=== PATIENT | female | born 1985 | race Two or more races ===

== ENCOUNTER 2024-09-05 22:16 | Emergency (ER) | payer MEDICAID, SELFPAY ==
[2024-09-05 22:16] VITALS: BMI 32.1
[2024-09-05 22:35] VITALS: BP 132/80; PULSE 71; RESP 18; TEMP 36.6; O2SAT 98
[2024-09-05] MEDS: HYDROcodone/APAP 7.5/325 TABLET 1 TAB PO (22:50)
--- NOTE | 2024-09-05 23:23 | PD.EDDENTL ---
ED Dental RME/HPI General Chief complaint: Dental/Oral/Throat Stated complaint: TOOTH PAIN Time Seen by Provider: 09/05/24 22:45 Arrival date/time: 09/05/24 22:16 38F with no significant PMH presents to ED with dental pain that's been intermittent since her recent deep cleaning at dentist. Patient is currently on amoxicillin and will see dentist tomorrow. Limitations: no limitations Related Data Previous Rx's ?Medication ?Instructions ?Recorded baclofen 20 mg tablet 20 mg PO QDAY #20 tabs 12/31/23 naproxen 500 mg tablet 500 mg PO BID PRN pain #30 tabs 12/31/23 Allergies Allergy/AdvReac Type Severity Reaction Status Date / Time No Known Allergies Allergy Verified 09/05/24 22:20 Review of Systems Review of Systems Systems Reviewed: All systems reviewed, normal except as documented Constitutional Constitutional: Reports system reviewed and no additional complaints, except as documented, Denies fever(s) and Denies headache(s) ENT Ears, Nose, Mouth, and Throat: Reports as per HPI, Reports dental pain, Denies disequilibrium and Denies headache(s) Cardiovascular Cardiovascular: Reports system reviewed and no additional complaints, except as documented, Denies chest pain and Denies dyspnea Respiratory Respiratory: Reports system reviewed and no additional complaints, except as documented, Denies cough and Denies dyspnea Gastrointestinal Gastrointestinal: Reports system reviewed and no additional complaints, except as documented, Denies abdominal pain, Denies nausea and Denies vomiting Neurologic Neurologic: Reports system reviewed and no additional complaints, except as documented, Denies confusion, Denies disequilibrium and Denies headache(s) Psychiatric Psychiatric: Denies confusion Past Medical History Social History SMOKING STATUS: Never smoker ED Exam General Limitations: Present no limitations General appearance: Present alert and in no apparent distress Head Head exam: Present atraumatic Eye Eye exam: Present normal appearance, PERRL and EOMI ENT ENT exam: Present mucous membranes moist Expanded ENT Exam Teeth exam: Present dental caries Neck Neck exam: Present normal inspection, full ROM and trachea midline Chest Chest inspection: Present normal inspection and symmetric chest wall rise Respiratory Respiratory exam: Present normal lung sounds bilaterally Cardiovascular Cardiovascular exam: Present regular rate, normal rhythm and normal heart sounds Abdominal Exam Abdominal exam: Present soft and normal bowel sounds Extremities Exam Extremities exam: Present normal inspection and full ROM Back Exam Back exam: Present normal inspection and full ROM Neurological Exam Neurological exam: Present alert, oriented X3 and CN II-XII intact Psychiatric Psychiatric exam: Present normal affect and normal mood Skin Skin exam: Present warm, dry, intact and normal color Course Quality Measures none Orders Category Date Time Status HYDROcodone*/APAP 7.5/325 [[place] 7.5/325] Med 09/05/24 22:45 Discontinued 1 tab PO X1 ONE Vital Signs Vital signs: Vital Signs Temperature 98 F 09/05/24 22:35 Pulse Rate 71 09/05/24 22:35 Respiratory Rate 18 09/05/24 22:35 Blood Pressure 132/80 H 09/05/24 22:35 Pulse Oximetry (%) 98 09/05/24 22:35 O2 at 98% on RA and WNLs Dental / Oral MDM Narrative MDM Narrative:: 38F with no significant PMH presents to ED with dental pain that's been intermittent since her recent deep cleaning at dentist. Patient is currently on amoxicillin and will see dentist tomorrow. Physical exam reveals no obvious gingival swelling. Multiple caries. Patient is afebrile, calm, and alert. Meds and marriage and family counselor given. Patient data External records reviewed:: [facility] previous records Clinical information provided by:: patient Social determinants that could affect healthcare access:: none Patient has the following chronic illnesses:: none How is presenting disease/condition affected by chronic disease/condition?: no chronic disease Evaluation data The following diagnostics were reviewed and interpreted by me:: other (specify) (none) Lab and/or radiology exams considered but not ordered:: not ordered Interpretation Summary: n/a Medications / Prescriptions Medications or Prescriptions considered but not ordered:: ordered Medication administrations:: Medication Administration History Discontinued Medications Hydrocodone Bitart/Acetaminophen (Hydrocodone/Apap 7.5/325 Tablet) 1 tab PO X1 ONE Stop: 09/05/24 22:46 Last Admin: 09/05/24 22:50 Dose: 1 tab Documented By: above Consultations Consultation(s) initiated? (list below): No Diagnosis Dental Differential Diagnosis: gingival abscess, dental caries, toothache, dental abscess, fracture of tooth and aphthous ulcer Most likely diagnosis given after review of the tests above:: toothache Admission Indicated Admission indicated?: not indicated Explain why admission is indicated or not indicated:: outpatient Admission Request Was there a request for admission?: No Disposition Plan Disposition Plan: Discharge Discharge Attestation Discharge Attestation: The patient and all family members were given an opportunity to ask questions and understood the discharge instructions. Discharge instructions specifically effects, indications for sooner follow up or return to the emergency department, and the expected course of current diagnosis. Patient condition: Stable Discharge Plan Plan Patient Disposition: HOME (Self Care) Disposition Comment: Stable Prescriptions/Referrals Prescriptions/Med Rec: No Action baclofen 20 mg tablet 20 mg PO QDAY Qty: 20 0RF naproxen 500 mg tablet 500 mg PO BID PRN (Reason: pain) Qty: 30 0RF Problem List Clinical Impression: Toothache Patient/Caregiver Discharge Instructions Education Materials: ED Dental Pain Additional Instructions: Please follow-up with PCP within 24-48 hours and return immediately if symptoms worsen. See dentist soon. Print Language: Nicaraguan Stand Alone Forms: Patient Portal Info Letter DAMIAN/RERE Supervising Physician DAMIAN/RERE Supervising Physician: Dr. Lincoln
== END 2024-09-05 22:52 | disposition home or self-care (01) ==
PROVIDERS: Emergency Provider Emergency Medicine; PCP Nurse Practitioner
DX: K08.89 Other specified disorders of teeth and supporting structures (principal)
CPT/HCPCS: 99283; A9270

== ENCOUNTER 2025-03-17 10:56 | Emergency (ER) | payer MEDICAID, SELFPAY ==
[2025-03-17 11:15] VITALS: BP 116/81; PULSE 108; RESP 18; TEMP 36.7; O2SAT 100
[2025-03-17] MEDS: HYDROcodone/APAP 5/325 TABLET 1 TAB PO (11:20)
[2025-03-17 11:32] LABS: Collection Type, Urine Voided
[2025-03-17 11:53] LABS: Bacteria,Urine 1+; Bilirubin,Urine Negative (Negative); Blood,Urine Negative (Negative); Color,Urine Yellow (Lt Yel-Yel); Glucose, Urine 4+ (Negative); Ketones,Urine Trace (Negative); Leukocyte Esterase,Urine Negative (Negative); Nitrite,Urine Positive (Negative); PH,Urine 6.0 (5.0-7.0); Protein,Urine Trace (Neg - Trace); RBC,Urine 5 /hpf (0-3); Specific Gravity,Urine 1.033 (1.001-1.035); Squamous Epithelial Cell,Urine 4 /hpf (0-5); Urobilinogen,Urine Negative mg/dL (0.0-1.0); WBC,Urine 8 /hpf (0-5)
[2025-03-17 12:07] LABS: Basophils # (Auto) 0.0 Thou/mm3 (0.0-0.2); Basophils % (Auto) 1 % (0-2.5); Eosinophils # (Auto) 0.1 Thou/mm3 (0.0-0.5); Eosinophils % (Auto) 1 % (0-10); Hematocrit 41.4 % (36.0-46.0); Hemoglobin 14.1 g/dL (12.0-16.0); Immature Granulocytes Auto 0.02 Thou/mm3 (0.00-0.00); Lymphocytes # (Auto) 2.1 Thou/mm3 (1.0-4.8); Lymphocytes % (Auto) 25 % (10-50); Mean Corpuscular HGB Conc 34.1 g/dl (31.0-37.0); Mean Corpuscular Hemoglobin 29.6 pg (25.0-35.0); Mean Corpuscular Volume 87 fL (80-100); Monocytes # (Auto) 0.6 Thou/mm3 (0.0-0.8); Monocytes % (Auto) 7 % (0-12); Neutrophils # (Auto) 5.6 Thou/mm3 (1.8-7.7); Neutrophils % (Auto) 67 % (37-80); Nucleated Red Blood Cell # 0.00 Thou/mm3 (0.00-0.00); Nucleated Red Blood Cell % 0 /100 WBC (0); Platelet Count 289 Thou/mm3 (140-440); RDW Standard Deviation 41.7 fL (36.4-46.3); Red Blood Count 4.76 Miln/mm3 (4.00-5.20); White Blood Count 8.4 Thou/mm3 (3.6-11.0)
[2025-03-17 12:24] LABS: Clarity,Urine Cloudy (Clear/Hazy); Culture Indicated,Urine Yes
[2025-03-17 12:26] LABS: Sed Rate (ESR) 57 mm/hr (0-20)
[2025-03-17 12:29] LABS: Alanine Aminotransferase 88 U/L (10-49); Albumin, Serum 4.2 gm/dL (3.5-5.0); Albumin/Globulin Ratio 1.4 (1.2-2.2); Alkaline Phosphatase 79 U/L (46-116); Anion Gap 11 (7-16); Aspartate Amino Transferase 36 U/L (0-34); BUN/Creatinine Ratio 17 Ratio (12-20); Bilirubin,Total 0.9 mg/dL (0.3-1.2); Blood Urea Nitrogen 12 mg/dL (9-23); C-Reactive Protein 3.8 mg/dL (0.0-0.9); Calcium 9.1 mg/dL (8.3-10.6); Calcium (Corrected) 9.1 mg/dL (8.5-10.1); Carbon Dioxide 23.7 mMol/L (20.0-31.0); Chloride 102 mMol/L (98-107); Creatinine (Component) 0.7 mg/dL (0.6-1.3); Estimated Creatinine Clearance 108.9 mL/min (>60); Globulin 3.1 gm/dL (2.3-3.5); Glucose 239 mg/dL (74-106); Osmolality,Calculated 281 (275-295); Potassium 3.7 mMol/L (3.4-5.1); Sodium 137 mMol/L (136-145); Total Protein 7.3 gm/dL (5.7-8.2); eGFR > 60 See Note
[2025-03-17 13:52] VITALS: BP 116/84; PULSE 101; RESP 18; TEMP 36.8; O2SAT 98
--- NOTE | 2025-03-17 14:06 | PD.EDADULT ---
ED General RME/HPI General Chief complaint: General Adult/Misc Complain Stated complaint: NECK, ANKLES, WRIST, BACK PAIN Time Seen by Provider: 03/17/25 10:58 Source: patient and family Arrival date/time: 03/17/25 10:56 Limitations: no limitations RME / HPI RME / HPI narrative: 3-year-old female is here today with her son who provides a history. She is here today with a 2-day history of polyarthralgia pain. She states her knees, back, wrists have been hurting. She has no joint erythema or edema. She has no fevers or chills. She has no eye changes. No eye irritation. No changes in urination. She has no skin changes. She denies any chest pain, nausea, or vomiting. Denies any history of autoimmune disorder. She has no other acute complaints. Related Data Previous Rx's ?Medication ?Instructions ?Recorded baclofen 20 mg tablet 20 mg PO QDAY #20 tabs 12/31/23 naproxen 500 mg tablet 500 mg PO BID PRN pain #30 tabs 12/31/23 prednisone 50 mg tablet 50 mg PO QDAY #5 tabs 03/17/25 Allergies Allergy/AdvReac Type Severity Reaction Status Date / Time No Known Allergies Allergy Verified 03/17/25 10:59 Review of Systems Review of Systems Systems Reviewed: All systems reviewed, normal except as documented ED Exam General Limitations: Present no limitations General appearance: Present alert and in no apparent distress Head Head exam: Present atraumatic Eye Eye exam: Present normal appearance, PERRL and EOMI ENT ENT exam: Present normal exam, normal oropharynx and mucous membranes moist Neck Neck exam: Present normal inspection, full ROM and trachea midline Chest Chest inspection: Present normal inspection and symmetric chest wall rise Respiratory Respiratory exam: Present normal lung sounds bilaterally Cardiovascular Cardiovascular exam: Present regular rate, normal rhythm and normal heart sounds Abdominal Exam Abdominal exam: Present soft and normal bowel sounds Extremities Exam Extremities exam: Present normal inspection and full ROM Back Exam Back exam: Present normal inspection and full ROM Neurological Exam Neurological exam: Present alert and oriented X3 Psychiatric Psychiatric exam: Present normal affect and normal mood Skin Skin exam: Present warm, dry, intact and normal color Course Quality Measures none Orders Category Date Time Status Glucose [Bedside Blood Glucose] NOW Care 03/17/25 10:59 Active CBC Stat Lab 03/17/25 11:41 Completed CMP [Comprehensive Metabolic Panel] Stat Lab 03/17/25 11:41 Completed CRP [C-Reactive Protein] Stat Lab 03/17/25 11:41 Completed Sed Rate (ESR) Stat Lab 03/17/25 11:41 Completed UA, C/S IF [Urinalysis, C/S if Indicated] Stat Lab 03/17/25 11:20 Completed Urine Culture Stat Lab 03/17/25 11:20 Received HYDROcodone*/APAP 5/325 [[place] 5/325] Med 03/17/25 10:59 Discontinued 1 tab PO X1 ONE dexAMETHasone TAB [Decadron Tab] Med 03/17/25 13:57 Discontinued 8 mg PO X1 ONE Vital Signs Vital signs: Vital Signs Temperature 98.1 F 03/17/25 11:15 Pulse Rate 108 H 03/17/25 11:15 Respiratory Rate 18 03/17/25 11:15 Blood Pressure 116/81 03/17/25 11:15 Pulse Oximetry (%) 100 03/17/25 11:15 Oxygen Delivery Method Room Air 03/17/25 11:15 Discharge Plan Plan Patient Disposition: HOME (Self Care) Patient condition on transfer: Stable Prescriptions/Referrals Prescriptions/Med Rec: New prednisone 50 mg tablet 50 mg PO QDAY Qty: 5 0RF No Action baclofen 20 mg tablet 20 mg PO QDAY Qty: 20 0RF naproxen 500 mg tablet 500 mg PO BID PRN (Reason: pain) Qty: 30 0RF Referrals: Dinora Green [Primary Care Provider] - In 1 week Problem List Clinical Impression: Polyarthralgia Patient/Caregiver Discharge Instructions Education Materials: ED Osteoarthritis, ED Pain, Acute, Uncertain Cause, ED Rheumatoid Arthritis Additional Instructions: -Use tylenol for comfort in addition to the prescribed medication. -It is important that you follow up in clinic this week to consider further work up and referral to rheumatology. -Return here at any time for any worsening changes including fever. Print Language: Malian Stand Alone Forms: Karlie Award Info., Patient Portal Info Letter MDM Narrative MDM hospital course: 39-year-old female is here today with her son who provides a history. She is here today with a 2-day history of polyarthralgia pain. She states her knees, back, wrists have been hurting. She has no joint erythema or edema. She has no fevers or chills. She has no eye changes. No eye irritation. No changes in urination. She has no skin changes. She denies any chest pain, nausea, or vomiting. Denies any history of autoimmune disorder. She has no other acute complaints. Clinical Information Provided by patient and family Labs/Rad/Tests considered, not Ordered None Chronic Illness/Social Conditions which may negatively complicate care or outcome(s)-explain: None or not applicable Lab Interpretation Lab(s) interpretation(s): No leukocytosis or anemia. No metabolic derangement. Sed rate and CRP are elevated. Urinalysis unremarkable. Imaging Imaging interpretation: none Medication Administration(s) Medication Administration History Discontinued Medications Hydrocodone Bitart/Acetaminophen (Hydrocodone/Apap 5/325 Tablet) 1 tab PO X1 ONE Stop: 03/17/25 11:00 Last Admin: 03/17/25 11:20 Dose: 1 tab Documented By: BRIDGET Dexamethasone (Dexamethasone 4 Mg Tablet) 8 mg PO X1 ONE; Protocol Stop: 03/17/25 13:58 Last Admin: 03/17/25 14:04 Dose: 8 mg Documented By: TANIYA See above Diagnosis Differential diagnosis: Polyarthralgia, overuse tendinitis, rheumatoid disease Dispositon Disposition: Discharge Home
--- NOTE | 2025-03-21 16:42 | PC.NURSE ---
PT CONTACTED VIA PHONE ABOUT MEDICATION SENT TO PHARMACY IN REGARDS TO HER URINE CULTURE RESULTS. PT ANSWERED AND VERBALIZED UNDERSTANDING.
== END 2025-03-17 14:21 | disposition home or self-care (01) ==
PROVIDERS: Physician Assistant Medical; Emergency Provider Emergency Medicine
DX: M25.562 Pain in left knee (principal); M25.561 Pain in right knee; M25.532 Pain in left wrist; M25.531 Pain in right wrist; M54.9 Dorsalgia, unspecified
CPT/HCPCS: 36415; 80053; 81001; 85025; 85652; 86140; 87077; 87086; 87186; 99283; J8540; A9270

== ENCOUNTER 2025-05-11 01:44 | Emergency (ER) | payer MEDICAID, SELFPAY ==
[2025-05-11 01:45] VITALS: BMI 26.6
[2025-05-11 01:53] VITALS: BP 122/87; PULSE 96; RESP 18; TEMP 36.8; O2SAT 99
--- NOTE | 2025-05-11 02:13 | EDNOTE_ITS ---
ED Extremity Problem RME/HPI General Chief complaint: General Adult/Misc Complain Stated complaint: ARTHRITIS PAIN THROUGHOUT BODY Time Seen by Provider: 05/11/25 01:58 Arrival date/time: 05/11/25 01:44 39F with history of arthritis (pending official diagnosis) presents to ED with generalized joint pains. Patient denies fall/trauma. Limitations: no limitations Related Data Previous Rx's ?Medication ?Instructions ?Recorded baclofen 20 mg tablet 20 mg PO QDAY #20 tabs 12/30 naproxen 500 mg tablet 500 mg PO BID PRN pain #30 t abs 12/31/23 prednisone 50 mg tablet 50 mg PO QDAY #5 tabs prednisone 20 mg tablet 20 mg PO BID 5 days #10 tabs 05/11/25 Allergies Allergy/AdvReac Type Severity Reaction Status Date / Time No Known Allergies Allergy Verified 03/17/25 10:59 Review of Systems Review of Systems Systems Reviewed: All systems reviewed, normal except as documented Constitutional Constitutional: Reports system reviewed and no additional complaints, except as documented, Denies fever(s) and Denies headache(s) ENT Ears, Nose, Mouth, and Throat: Denies disequilibrium and Denies headache(s) Cardiovascular Cardiovascular: Reports system reviewed and no additional complaints, except as documented, Denies chest pain and Denies dyspnea Respiratory Respiratory: Reports system reviewed and no additional complaints, except as documented, Denies cough and Denies dyspnea Gastrointestinal Gastrointestinal: Reports system reviewed and no additional complaints, except as documented, Denies abdominal pain, Denies nausea and Denies vomiting Musculoskeletal Musculoskeletal: Reports as per HPI and Reports arthralgias Neurologic Neurologic: Reports system reviewed and no additional complaints, except as documented, Denies confusion, Denies disequilibrium and Denies headache(s) Psychiatric Psychiatric: Denies confusion Past Medical History Social History SMOKING STATUS: Never smoker ED Exam General Limitations: Present no limitations General appearance: Present alert and in no apparent distress Head Head exam: Present atraumatic Eye Eye exam: Present normal appearance, PERRL and EOMI ENT ENT exam: Present normal exam, normal oropharynx and mucous membranes moist Neck Neck exam: Present normal inspection, full ROM and trachea midline Chest Chest inspection: Present normal inspection and symmetric chest wall rise Respiratory Respiratory exam: Present normal lung sounds bilaterally Cardiovascular Cardiovascular exam: Present regular rate, normal rhythm and normal heart sounds Abdominal Exam Abdominal exam: Present soft and normal bowel sounds Extremities Exam Extremities exam: Present normal inspection and full ROM Back Exam Back exam: Present normal inspection and full ROM Neurological Exam Neurological exam: Present alert, oriented X3 and CN II-XII intact Psychiatric Psychiatric exam: Present normal affect and normal mood Skin Skin exam: Present warm, dry, intact and normal color Course Quality Measures none Orders Category Date Time Status Dexamethasone Inj [Decadron Inj] Med 05/11/25 01:59 Discontinued 10 mg PO X1 ONE HYDROcodone*/APAP 5/325 [[place] 5/325] Med 05/11/25 01:59 Discontinued 1 tab PO X1 ONE Vital Signs Vital signs: Vital Signs Temperature 98.3 F 05/11/25 01:53 Pulse Rate 96 05/11/25 01:53 Respiratory Rate 18 05/11/25 01:53 Blood Pressure 122/87 H 05/11/25 01:53 Pulse Oximetry (%) 99 05/11/25 01:53 Oxygen Delivery Method Room Air 05/11/25 01:53 O2 at 99% on RA and WNLs Extremity Problem MDM Narrative MDM Narrative:: 39F with history of arthritis (pending official diagnosis) presents to ED with generalized joint pains. Patient denies fall/trauma. Physical exam reveals uncomfortable-appearing female. Patient is afebrile and alert. Meds and group counselor given. Patient data External records reviewed:: [facility] previous records Clinical information provided by:: patient Social determinants that could affect healthcare access:: none Patient has the following chronic illnesses:: arthritis How is presenting disease/condition affected by chronic disease/condition?: caused by Evaluation data The following diagnostics were reviewed and interpreted by me:: other (specify) (none) Lab and/or radiology exams considered but not ordered:: not ordered Interpretation Summary: n/a Medications / Prescriptions Medications or Prescriptions considered but not ordered:: ordered Medication administrations:: Medication Administration History Discontinued Medications Hydrocodone Bitart/Acetaminophen (Hydrocodone/Apap 5/325 Tablet) 1 tab PO X1 ONE Stop: 05/11/25 02:00 Dexamethasone Sodium Phosphate (Dexamethasone Sod Phos Inj 10 Mg/Ml Vial) 10 mg PO X1 ONE Stop: 05/11/25 02:00 above Consultations Consultation(s) initiated? (list below): No Diagnosis Extremity Problem Differential Diagnosis: herpes zoster, gout, cellulitis, superficial thrombophlebitis, deep venous thrombosis of upper extremity, lower extremity edema, deep vein thrombosis of lower extremity and other (arthralgias) Most likely diagnosis given after review of the tests above:: arthralgias Admission Indicated Admission indicated?: not indicated Admission Request Was there a request for admission?: No Disposition Plan Disposition Plan: Discharge Discharge Attestation Discharge Attestation: The patient and all family members were given an opportunity to ask questions and understood the discharge instructions. Discharge instructions specifically effects, indications for sooner follow up or return to the emergency department, and the expected course of current diagnosis. Patient condition: Stable Discharge Plan Plan Patient Disposition: HOME (Self Care) Discharge Disposition comment: Stable Prescriptions/Referrals Prescriptions/Med Rec: New prednisone 20 mg tablet 20 mg PO BID 5 Days Qty: 10 0RF No Action baclofen 20 mg tablet 20 mg PO QDAY Qty: 20 0RF naproxen 500 mg tablet 500 mg PO BID PRN (Reason: pain) Qty: 30 0RF prednisone 50 mg tablet 50 mg PO QDAY Qty: 5 0RF Problem List Clinical Impression: Arthralgia Patient/Caregiver Discharge Instructions Education Materials: ED Arthralgia Additional Instructions: Please follow-up with PCP within 24-48 hours and return immediately if symptoms worsen. If problem persists, recommend outpatient PT and/or MRI follow-up. In the meantime, rest, use ice/heat, and/or compression. Print Language: Khmer Stand Alone Forms: Patient Portal Info Letter DAMIAN/RERE Supervising Physician DAMIAN/RERE Supervising Physician: Dr. Beach
[2025-05-11] MEDS: HYDROcodone/APAP 5/325 TABLET 1 TAB PO (02:18)
[2025-05-11] MEDS: DEXAMETHASONE SOD PHOS INJ 10 MG/ML VIAL PO (02:19)
== END 2025-05-11 02:24 | disposition home or self-care (01) ==
LOC: SERX 02:28
PROVIDERS: Emergency Provider Emergency Medicine
DX: M25.50 Pain in unspecified joint (principal)
CPT/HCPCS: 99283; J1100; A9270

== ENCOUNTER 2025-06-20 07:35 | Emergency (ER) | payer MEDICAID, SELFPAY ==
[2025-06-20 07:36] VITALS: BMI 29.2
--- NOTE | 2025-06-20 07:47 | EDNOTE_ITS ---
ED General RME/HPI General Chief complaint: General Adult/Misc Complain Stated complaint: SHOULDER, HIP AND KNEE PAIN WITH HX OF ARTHRITIS Time Seen by Provider: 06/20/25 07:47 Arrival date/time: 06/20/25 07:35 RME / HPI RME / HPI narrative: Kandi is a 39 y/o female with PMHx Insulin-dependent T2DM, and osteoarthritis who comes in for an evaluation of bilateral hand pain and neck pain has been going on for some time and has been worsening and affecting her gait and daily life activities. Patient reports that she has been in the hospital before for evaluation of similar pain. She says she is currently going to see a specialist (maybe a application development team lead) for further evaluation of her pain. 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 She also says that she has been given steroids before in the past for her pain. She says she takes ibuprofen 800 mg twice a day he should be doing that since January, however she has not been doing that every day to manage her pain. She also says that she has been diagnosed with osteoarthritis. She says that sometimes she cannot walk fully, however does not have a walker or wheelchair. She denies a history of multiple sclerosis. 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 She denies any recent trauma to her body. Denies any chest pain, shortness of breath, headaches, fever, chills. No other complaints at this time. Related Data Previous Rx's ?Medication ?Instructions ?Recorded baclofen 20 mg tablet 20 mg PO QDAY #20 tabs 12/30 naproxen 500 mg tablet 500 mg PO BID PRN pain #30 t abs 12/31/23 prednisone 50 mg tablet 50 mg PO QDAY #5 tabs cyclobenzaprine 5 mg tablet 5 mg PO TID PRN muscle spa sm 2 06/20/25 weeks #14 tabs Allergies Allergy/AdvReac Type Severity Reaction Status Date / Time No Known Allergies Allergy Verified 06/20/25 07:39 Review of Systems Review of Systems Narrative Review of Systems: 12 point ROS reviewed and is otherwise negative unless stated directly in the HPI ED Exam Narrative Physical exam: General: AAOx3, NAD, patient sitting in wheelchair, Faroese-speaking female HEENT: Moist mucous membranes, conjunctiva clear, EOMI, PERRLA, Cardiovascular: S1, S2, radial pulses +2 bilat, RRR Pulmonary: CTAB bilat no cough, no wheezing GI: No tenderness to light or deep palpitation, no guarding, rigidity, rebound tenderness or distension MSK: Cervical tenderness, worsened with cervical extension, C7 visualized and palpated, negative red reflex test along cervical, thoracic and lumbar spine. 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 Patient was not able to fully walk, however was able to stand off wheelchair. Extremities: No presence of trace or pitting edema in lower extremities bilaterally, dorsalis pedis pulses +2 bilaterally Neuro: AAOx3, no focal motor or sensory deficits in the UE or LE bilat Psych: Good judgement, thought and behavior Course Quality Measures none Orders Category Date Time Status CT lumbar spine wo con Stat Exams 06/20/25 10:22 Completed XR cervical spine 2-3V Stat Exams 06/20/25 08:01 Completed XR hand BI 2V Stat Exams 06/20/25 08:01 Completed XR wrist BI 2V Stat Exams 06/20/25 08:01 Completed CBC Stat Lab 06/20/25 09:04 Completed CMP [Comprehensive Metabolic Panel] Stat Lab 06/20/25 09:04 Completed CRP [C-Reactive Protein] Stat Lab 06/20/25 09:04 Completed ESR [Sed Rate (ESR)] Stat Lab 06/20/25 09:04 Completed HCG,Qualitative Serum Stat Lab 06/20/25 09:04 Completed CYCLObenzaPRINE [Flexeril] Med 06/20/25 08:04 Discontinued 5 mg PO X1 ONE HYDROcodone*/APAP 5/325 [[place] 5/325] Med 06/20/25 10:22 Discontinued 1 tab PO X1 ONE Vital Signs Vital signs: Vital Signs Temperature 98.1 F 06/20/25 07:49 Pulse Rate 86 06/20/25 07:49 Respiratory Rate 18 06/20/25 07:49 Blood Pressure 127/86 H 06/20/25 07:49 Pulse Oximetry (%) 98 06/20/25 07:49 Oxygen Delivery Method Room Air 06/20/25 07:49 Discharge Plan Plan Patient Disposition: HOME (Self Care) Prescriptions/Referrals Prescriptions/Med Rec: New cyclobenzaprine 5 mg tablet 5 mg PO TID PRN (Reason: muscle spasm) 14 Days Qty: 14 0RF Rx Instructions: Take one tablet by mouth up to three times a day No Action baclofen 20 mg tablet 20 mg PO QDAY Qty: 20 0RF naproxen 500 mg tablet 500 mg PO BID PRN (Reason: pain) Qty: 30 0RF prednisone 50 mg tablet 50 mg PO QDAY Qty: 5 0RF Referrals: Sunil Orellana MD [Primary Care Provider, Family Practice] - In 1 week Problem List Clinical Impression: Bulge of lumbar disc without myelopathy Patient/Caregiver Discharge Instructions Additional Instructions: Discharge instructions Follow-up with your PCP within 1 week We are prescribing your Flexeril, take as prescribed Have your PCP refer you to a application development team lead Speak with your PCP in regards to further workup for your lower back, consider MRI, physical therapy and possible orthopedic/neurosurgery referral Return to ER if you begin you have trouble having bowel movements or urinating Return to ED if your symptoms worsen or return Instrucciones para el ludwin Consulte con bonilla m?dico de cabecera en el plazo de umm semana Le recetaremos Flexeril; t?baldwin seg?n lo prescrito. Solicite a bonilla m?dico de cabecera que lo derive a un reumat?logo. Hable con bonilla m?dico de cabecera sobre estudios adicionales para la sudeep lumbar, considere umm resonancia magn?merlin, fisioterapia y umm posible derivaci?n a un especialista en ortopedia o neurocirug?a. Regrese a urgencias si empieza a tener dificultad para defecar u orinar. Regrese a urgencias si los s?ntomas empeoran o reaparecen. Print Language: Faroese Stand Alone Forms: Karlie Award Info., Patient Portal Info Letter MDM Narrative MDM hospital course (for use when minimal MDM required): 804: Due to concern for rheumatologic disease, will order plain films of hand and wrist bilaterally, also also order cervical plain film with multi views. Fracture is left on the differential for any of these bony ligaments, however my suspicion is there is a rheumatologic component of her diagnosis. Patient will need labs to assess for kidney function as well as patient has been taking ibuprofen consistently at a heavy dose for the past 6 months. Also ordered inflammatory markers for further evaluation of rheumatologic disease. Will give Flexeril at this time. 1020: Reviewed labs, showed elevation of inflammatory markers, will order additional lumbar spine CT to rule out further pathology such as rupture spur, herination. Ordered [place] 5 x1 for pain 1250: Lumbar CT shows L4-L5 2mm central disc buldge, however pt does not have any urinary or bowel incontinence. Pt will need to follow up with PCP for further evaluation with potential MRI, physical therapy and possible neurosurgeon/orthopedic. Medication Administration(s) Medication Administration History Discontinued Medications Hydrocodone Bitart/Acetaminophen (Hydrocodone/Apap 5/325 Tablet) 1 tab PO X1 ONE Stop: 06/20/25 10:23 Last Admin: 06/20/25 10:39 Dose: 1 tab Documented By: Cyclobenzaprine HCl (Cyclobenzaprine 5 Mg Tablet) 5 mg PO X1 ONE Stop: 06/20/25 08:05 Last Admin: 06/20/25 08:09 Dose: 5 mg Documented By: DO Diagnosis Diagnoses ruled out and/or further discussions: Osteoarthritis, rheumatoid arthritis, PMR, polymyositis, bulging disc
[2025-06-20 07:49] VITALS: BP 127/86; PULSE 86; RESP 18; TEMP 36.7; O2SAT 98
--- NOTE | 2025-06-20 08:01 | XR_ITS ---
EXAMINATION: Bilateral wrist 4 views TECHNIQUE: AP lateral right and left wrist total 4 views Date and time: June 20, 2025, 0826 hours INDICATIONS: Bilateral wrist pain years. FINDINGS: Mild osteopenia. Mild bilateral osteoarthritis first carpometacarpal joints. No fractures. No avascular necrosis IMPRESSION: Mild bilateral osteoarthritis first carpometacarpal joints
--- NOTE | 2025-06-20 08:01 | XR_ITS ---
EXAMINATION: Bilateral hands 4 views TECHNIQUE: AP lateral right and left hands total 4 views Date and time: June 20, 2025, 0821 hours INDICATIONS: Bilateral hand pain years. FINDINGS: Mild osteopenia No fractures Mild bilateral osteoarthritis first carpometacarpal joint No erosive arthritis No opaque foreign bodies IMPRESSION: Bilateral mild osteoarthritis first carpometacarpal joint
--- NOTE | 2025-06-20 08:01 | XR_ITS ---
EXAMINATION: Cervical spine 4 views TECHNIQUE: AP, lateral, swimmer's lateral, AP odontoid cervical spine 4 views Date and time: June 20, 2025, 0836 hours INDICATIONS: Neck pain years. FINDINGS: Adequate alignment cervical vertebral bodies No cervical fracture. Intact odontoid IMPRESSION: No cervical fracture No significant cervical disc narrowing
[2025-06-20 09:17] LABS: Basophils # (Auto) 0.1 Thou/mm3 (0.0-0.2); Basophils % (Auto) 1 % (0-2.5); Eosinophils # (Auto) 0.1 Thou/mm3 (0.0-0.5); Eosinophils % (Auto) 1 % (0-10); Hematocrit 41.2 % (36.0-46.0); Hemoglobin 13.7 g/dL (12.0-16.0); Immature Granulocytes Auto 0.03 Thou/mm3 (0.00-0.00); Lymphocytes # (Auto) 3.6 Thou/mm3 (1.0-4.8); Lymphocytes % (Auto) 34 % (10-50); Mean Corpuscular HGB Conc 33.3 g/dl (31.0-37.0); Mean Corpuscular Hemoglobin 28.5 pg (25.0-35.0); Mean Corpuscular Volume 86 fL (80-100); Monocytes # (Auto) 0.7 Thou/mm3 (0.0-0.8); Monocytes % (Auto) 6 % (0-12); Neutrophils # (Auto) 6.1 Thou/mm3 (1.8-7.7); Neutrophils % (Auto) 58 % (37-80); Nucleated Red Blood Cell # 0.00 Thou/mm3 (0.00-0.00); Nucleated Red Blood Cell % 0 /100 WBC (0); Platelet Count 363 Thou/mm3 (140-440); RDW Standard Deviation 41.0 fL (36.4-46.3); Red Blood Count 4.80 Miln/mm3 (4.00-5.20); White Blood Count 10.6 Thou/mm3 (3.6-11.0)
[2025-06-20 09:30] LABS: Sed Rate (ESR) 54 mm/hr (0-20)
[2025-06-20 09:44] LABS: Alanine Aminotransferase 53 U/L (10-49); Albumin, Serum 4.7 gm/dL (3.5-5.0); Albumin/Globulin Ratio 1.6 (1.2-2.2); Alkaline Phosphatase 104 U/L (46-116); Anion Gap 12 (7-16); Aspartate Amino Transferase 22 U/L (0-34); BUN/Creatinine Ratio 17 Ratio (12-20); Bilirubin,Total 0.4 mg/dL (0.3-1.2); Blood Urea Nitrogen 12 mg/dL (9-23); C-Reactive Protein 2.0 mg/dL (0.0-0.9); Calcium 9.6 mg/dL (8.3-10.6); Calcium (Corrected) 9.6 mg/dL (8.5-10.1); Carbon Dioxide 22.0 mMol/L (20.0-31.0); Chloride 105 mMol/L (98-107); Creatinine (Component) 0.7 mg/dL (0.6-1.3); Estimated Creatinine Clearance 103.5 mL/min (>60); Globulin 3.0 gm/dL (2.3-3.5); Glucose 180 mg/dL (74-106); Osmolality,Calculated 282 (275-295); Potassium 3.6 mMol/L (3.4-5.1); Sodium 139 mMol/L (136-145); Total Protein 7.7 gm/dL (5.7-8.2); eGFR > 60 See Note
--- NOTE | 2025-06-20 10:22 | XR_ITS ---
Examination: CT lumbar spine, without contrast. 2-D sagittal reconstructions. 2-D coronal reconstructions. 3-D reconstructions. Date and time of exam: June 20, 2025, 1210 hours Injury to the lower back 2 days ago, lower back pain CTDI: vol (mGy): 23.5 DLP: (mGycm): 705 Technique: Multiple 1.25 mm axial sections of the lumbar spine without intravenous contrast have been obtained. 2-D sagittal and coronal reconstructions have been obtained. 3-D reconstructions have been obtained. Low dose protocols were performed. One or more of the following dose reduction techniques were used; automated exposure control, adjustment of the mA and/or KV according to patient size, use of iterative reconstruction technique. Findings: Moderate osteopenia. Transitional L5 vertebral body No lumbar vertebral body compression fracture No spondylolisthesis Lumbar pedicles, laminae, transverse and posterior spinous processes intact L5-S1 no disc protrusion L4-L5 2 mm central lumbar disc bulge L3-L4 no disc protrusion L2-L3 no disc protrusion L1-L2 no disc protrusion IMPRESSION: No lumbar fracture L4-L5 2 mm central lumbar disc bulge If symptoms persist, MRI lumbar spine without contrast follow-up would be preferable in assessing for acquired soft tissue spinal stenosis
[2025-06-20] MEDS: HYDROcodone/APAP 5/325 TABLET 1 TAB PO (10:39)
[2025-06-20 11:03] LABS: HCG,Qualitative Serum Negative
== END 2025-06-20 14:23 | disposition home or self-care (01) ==
PROVIDERS: Emergency Provider Family Medicine; PCP Family Medicine
DX: M51.369 Other intervertebral disc degeneration, lumbar region without mention of lumbar back pain or lower extremity pain (principal); M79.642 Pain in left hand; M79.641 Pain in right hand; M25.532 Pain in left wrist; M25.531 Pain in right wrist; M54.2 Cervicalgia
CPT/HCPCS: 36415; 72040; 72050; 72131; 73100; 73120; 80053; 84703; 85025; 85652; 86140; 99284; A9270